=== PATIENT | male | born 1975 | race Caucasian/White ===

== ENCOUNTER 2016-11-23 23:52 | Emergency (ER) | payer OTHER ==
[~2016-11-23] VITALS: Ht 177.8 cm; Wt 176.5 kg
[2016-11-24] MEDS ORDERED: AMLODIPINE 5 MG TABLET PO ONE (01:00)
[2016-11-24 01:09] VITALS: BP 147/84
== END 2016-11-24 01:54 | disposition home or self-care (01) ==
LOC: ED 23:59
DX: J20.9 Acute bronchitis, unspecified (principal); E66.01 Morbid (severe) obesity due to excess calories; E11.9 Type 2 diabetes mellitus without complications
CPT/HCPCS: 71020; 93005; 99284